=== PATIENT | male | born 1995 | race African-American/Black ===

== ENCOUNTER 2018-01-06 23:23 | Emergency (ER) | payer OTHER ==
--- NOTE | 2018-01-07 00:14 | ED Physician Chart ---
ED Chief Complaint/HPI - Patient Information Date Seen:: 01/07/18 Time Seen:: 00:09 Chief Complaint:: fall History of Present Illness:: 22 yr old black male with fall and head pain post scallp no nv no loc no dizziness or heart pain Allergies:: Allergies Allergy/AdvReac Type Severity Reaction Status Date / Time No Known Allergies Allergy Verified 01/06/18 23:41 Vitals:: Vital Signs - 8 hr 01/06/18 23:30 Temp 98.2 F HR 55 RR 18 BP 136/71 O2 Sat % 98 ED Review of Systems - Review of Systems General/Constitutional: No fever Skin: No skin lesions Head: Headache Eyes: No loss of vision ENT: No earache, Nasal drainage Neck: Neck pain Cardio Vascular: No chest pain Pulmonary: No SOB GI: No nausea, No vomiting G/U: No dysuria Musculoskeletal: No bone or joint pain Endocrine: No polyuria Psychiatric: No prior psych history, No anxiety Hematopoietic: No bruising Allergic/Immuno: No urticaria Neurological: No syncope Family Medical History - Family Member Mother Ethnicity: Non- Living Status: Still Living ED Septic Shock - . Is Septic Shock (SBP<90, OR Lactate>4 mmol\L) present?: No - <6hrs of presentation: Vital Signs: Vital Signs - 8 hr 01/06/18 23:30 Temp 98.2 F HR 55 RR 18 BP 136/71 O2 Sat % 98 ED Reassessment (Disposition) - Reassessment Reassessment Condition:: Improved - Diagnosis Diagnosis:: fall head contusion - Patient Disposition Discharge/Transfer:: Acute Care w/in this hosp Condition at Disposition:: Stable
--- NOTE | 2018-01-07 08:54 | Diagnostic Imaging Report ---
Head CT without intravenous contrast Indication: Fall Comparison: None Technique: Axial images were obtained from the vertex to the skull base without IV contrast. Coronal reconstructions were made. Total DLP: 735, CTDI39 FINDINGS: Images of the brain obtained without contrast demonstrate no acute hemorrhage. No mass lesions identified. The ventricles and basal cisterns are patent. The bowen-white matter differentiation is preserved. There is no mass effect or midline shift. No skull fractures identified. No soft tissue swelling. 1.1 cm mucus retention cyst versus polyp of the right maxillary sinus is noted. Additional 1 cm mucous retention cyst versus polyp of the left maxillary sinus is noted. IMPRESSION: No acute intracranial abnormality. Mucous retention cysts versus polyps of the maxillary sinuses.
--- NOTE | 2018-01-07 08:56 | Diagnostic Imaging Report ---
CT cervical spine without IV contrast HISTORY: Fall COMPARISON: None Technique: Axial images were obtained from the skull base to the upper thoracic spine without IV contrast. Multiplanar reconstructions were made. Total DLP: 452, CTDI25.1 FINDINGS: Images of the spine cervical spine obtained without contrast demonstrate no evidence of a fracture or subluxation. The disc spaces are preserved. There is straightening of the cervical lordosis. Minimal early degenerative changes are noted. No prevertebral soft tissue swelling. No focal soft tissue abnormalities. The lung apices are clear. IMPRESSION: No evidence of an acute fracture or subluxation. Straightening of the cervical lordosis which may be due to positioning versus muscle spasm.
== END 2018-01-07 01:15 | disposition home or self-care (01) ==
LOC: ER 23:23
DX: S00.93XA Contusion of unspecified part of head, initial encounter (principal); W01.198A Fall on same level from slipping, tripping and stumbling with subsequent striking against other object, initial encounter; Y93.89 Activity, other specified; Y92.89 Other specified places as the place of occurrence of the external cause; Y99.0 Civilian activity done for income or pay
CPT/HCPCS: 70450-TC; 72125-TC; Z7502